=== PATIENT | female | born 2000 | race Caucasian/White ===

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

== ENCOUNTER → 2021-02-21 14:39 | Outpatient (CLI) | payer BC, SELFPAY ==
--- NOTE | ~2021-02-21 | XR_ITS ---
EXAMINATION: XR lumbar spine 2-3V DATE: 02/21/2021 15:03 INDICATION: Low back pain, unspecified. TECHNIQUE: 3 views of lumbar spine were obtained. COMPARISON: CT abdomen and pelvis 05/20/2018 FINDINGS: Bone alignment is normal. Vertebral body heights and intervertebral disc heights are normal . The facet joints are unremarkable. IMPRESSION: 1. Normal lumbar spine. Reviewed, dictated and finalized at location A. [employer] IMPRESSION: 1. Normal lumbar spine.
== END ==
PROVIDERS: PCP Family Medicine; Visit Provider Physician Assistant Medical
DX: M54.50 Low back pain, unspecified (principal)
CPT/HCPCS: 72100

== ENCOUNTER → 2022-07-23 08:44 | Outpatient (CLI) | payer BC, SELFPAY ==
--- NOTE | ~2022-07-23 | US_ITS ---
EXAMINATION: US breast RT limited HISTORY: Palpable lump in the upper outer quadrant of the right breast TECHNIQUE: Limited right breast ultrasound is performed. FINDINGS: No suspicious cystic or solid mass is identified in the area of the palpable abnormality of the right breast. There is dense fibroglandular tissue in the imaged portion of the right breast. IMPRESSION: No specific sonographic correlate is identified for the reported palpable abnormality of concern. Fur ther evaluation at this time should be based on clinical assessment. Continued follow-up physical exa mination is recommended. BI-RADS Category 1: Negative Reviewed, dictated and finalized at location A. IMPRESSION: No specific sonographic correlate is identified for the reported palpable abnor mality of concern. Further evaluation at this time should be based on clinical assessment. Continued follow-up physical examination is recommended. BI-RADS Category 1: Negative
== END ==
PROVIDERS: PCP Advanced Practice Midwife; Visit Provider Advanced Practice Midwife
DX: N64.4 Mastodynia (principal); N64.59 Other signs and symptoms in breast; N63.10 Unspecified lump in the right breast, unspecified quadrant
CPT/HCPCS: 76642

== ENCOUNTER → 2022-11-14 15:33 | Outpatient (CLI) | payer BC, SELFPAY ==
--- NOTE | ~2022-11-14 | US_ITS ---
EXAMINATION: US OB <= 14 weeks fetus DATE: 11/14/2022 15:52 INDICATION: with inconclusive viability TECHNIQUE: Real-time pelvic ultrasound utilizing transabdominal probe was performed. The caridad serrato radiologist was not present for the study. COMPARISON: None. FINDINGS: The uterus measures 10.6 x 6.4 x 6.3 cm. There is an intrauterine gestational sac. Yolk sac and feta l pole are identified. The crown rump length measures 3.7 cm, which correlates with an estimated gest ational age of 10 weeks and 4 days. heart motion is identified measuring 163 beats per minute ( bpm) by M-mode Doppler. The right ovary measures 5.0 x 3.1 x 4.0 cm. And contains a 2.8 cm anechoic cyst. The left ovary vadim ures 2.7 x 2.6 x 2.3 cm. There is no free fluid in the pelvis. IMPRESSION: 1. Single living fetus with heart rate of 163 bpm. 2. Gestational age by ultrasound of 10 weeks 4 day(s) +/- 7 day(s) with ultrasound estimated date of delivery (ROB) of 06/08/2023. Reviewed, dictated and finalized at location A. IMPRESSION: 1. Single living fetus with heart rate of 163 bpm. 2. Gestational age by ultrasound of 10 weeks 4 day(s) +/- 7 day(s) with ultras ound estimated date of delivery (ROB) of 06/08/2023.
== END ==
PROVIDERS: PCP Advanced Practice Midwife; Visit Provider Advanced Practice Midwife
DX: O36.80X0 Pregnancy with inconclusive fetal viability, not applicable or unspecified (principal); Z3A.10 10 weeks gestation of pregnancy
CPT/HCPCS: 76801